=== PATIENT | female | born 1980 | race Caucasian/White ===

== ENCOUNTER 2022-04-30 20:25 | Inpatient (IN) | payer OTHER ==
[~2022-04-30 20:25] MED LIST: Iopamidol-370 76% 500 ML 1 ML ONE
[2022-04-30 20:45] LABS: #Eosinphils 0.1 thou/uL (0.0-0.7); #Lymphocytes 1.6 thou/uL (1.20-3.40); #Monocytes 0.8 thou/uL (0.11-0.59); #Neutrophils 6.1 thou/uL (1.40-6.50); %Basophils 0.3 % (0.0-1.0); %Eosinophils 1.7 % (0.0-10.0); %Lymphocytes 18.6 % (21.0-51.0); %Monocytes 9.1 % (0.0-10.0); %Neutrophils 70.2 % (42.0-75.0); Hemoglobin 13.2 g/dL (12.0-16.0); Mean Corpuscular HGB CONC 31.4 g/dL (32.0-36.0); Mean Corpuscular Hemoglobin 27.9 pg (27.0-31.0); Mean Corpuscular Volume 88.8 fl (78.0-98.0); Mean Platelet Volume 10.7 fL (7.4-10.4); Platelet Count 169 10x3/uL (130-400); RBC Distribution Width 14.8 % (11.5-14.5); Red Blood Cell (RBC) Count 4.74 mill/uL (4.20-5.40); White Blood Cell (WBC) Count 8.7 10x3/uL (4.8-10.8)
[2022-04-30 21:03] LABS: ALT (SGPT) 15 U/L (8-55); AST (SGOT) 15 U/L (5-34); Albumin 3.9 g/dL (3.5-5.0); Alkaline Phosphatase 76 U/L (40-110); Anion Gap 13 mmol/L (10-20); BUN (Urea Nitrogen) 9 mg/dL (7.0-18.7); Bilirubin, Total 0.4 mg/dL (0.2-1.2); CK (CPK) 50 U/L (29-168); Calc. Creatinine Clearance 0 mL/min (70-130); Calcium 8.3 mg/dL (7.8-10.44); Carbon Dioxide 16 mmol/L (22-29); Chloride 112 mmol/L (98-107); Estimated GFR 99; Globulin 2.6 g/dL (2.4-3.5); Glucose 87 mg/dL (70-105); Potassium 3.8 mmol/L (3.5-5.1); Protein, Total 6.5 g/dL (6.0-8.3); Sodium 137 mmol/L (136-145)
[2022-04-30] MEDS ORDERED: Aspirin Chewable 81 MG TAB ONE (21:13)
[2022-04-30 21:54] LABS: PTT 28.8 sec (22.9-36.1); Prothrombin Time 13.2 sec (12.0-14.7)
[2022-04-30 22:44] LABS: BHCG - Serum Negative (NEGATIVE); Pregs Control Background? CLEAR/WHITE (CLR/WHITE); Pregs Control Bar Appear? YES (CONTROL BAR)
[2022-04-30] MEDS ORDERED: Acetaminophen 325 MG TAB PO PRN (22:54)
[2022-04-30] MEDS ORDERED: hydrALAZINE 20 MG/ML VIAL SLOW IVP PRN (22:54)
[2022-04-30] MEDS ORDERED: Ondansetron ODT 4 MG TAB PO PRN (22:54)
[2022-04-30] MEDS ORDERED: Ondansetron PF 4 MG/2 ML Vial IVP PRN (22:54)
[2022-04-30] MEDS ORDERED: Mag-Al 1200 mg/1200 mg/30 ML UDCUP PO SCH (23:00)
[2022-04-30 23:40] LABS: Magnesium 1.9 mg/dL (1.6-2.6)
[2022-05-01 01:26] LABS: Acetaminophen Less than 10.0 mcg/mL (10.0-30.0); Alcohol Less than 10 mg/dL (Less than 10); Salicylate Less than 8.0 mg/dL (15.0-30.0)
[2022-05-01 01:29] LABS: Troponin I Less than 0.010 ng/mL (< 0.028)
[2022-05-01 01:34] VITALS: BMI 28.5
[2022-05-01 03:50] LABS: Anion Gap 15 mmol/L (10-20); BUN (Urea Nitrogen) 7 mg/dL (7.0-18.7); Calc. Creatinine Clearance 134 mL/min (70-130); Calcium 8.5 mg/dL (7.8-10.44); Carbon Dioxide 15 mmol/L (22-29); Cardiac Risk 3.8 (Less than 4.5); Chloride 110 mmol/L (98-107); Cholesterol 169 mg/dl (< 200 Desired); Estimated GFR 114; Glucose 88 mg/dL (70-105); HDL Cholesterol 45 mg/dL (>60 Neg Risk); LDL Cholesterol, Calculated 114 mg/dL; Potassium 3.8 mmol/L (3.5-5.1); Sodium 136 mmol/L (136-145); Triglycerides 50 mg/dL (Less than 150)
[2022-05-01 05:47] LABS: Troponin I Less than 0.010 ng/mL (< 0.028)
[2022-05-01] MEDS: Famotidine 20 MG TAB PO SCH ×2 (06:30→19:13)
[2022-05-01] MEDS ORDERED: Famotidine/PF 20 mg/2ml Vial SLOW IVP SCH (09:00)
[2022-05-01] MEDS: Sodium Bicarbonate Tab 325 MG TAB PO SCH ×3 (09:50→21:26)
[2022-05-01] MEDS: Aspirin 81 mg Enteric Coated Tablet PO SCH (09:50)
[2022-05-01 20:11] LABS: Prothrombin Time 13.7 sec (12.0-14.7)
[2022-05-01 20:12] LABS: PTT 29.4 sec (22.9-36.1)
[2022-05-01] MEDS ORDERED: Atorvastatin Calcium 40 MG TAB PO SCH (21:00)
[2022-05-02 05:15] LABS: #Eosinphils 0.3 thou/uL (0.0-0.7); #Lymphocytes 1.7 thou/uL (1.20-3.40); #Monocytes 0.6 thou/uL (0.11-0.59); #Neutrophils 3.5 thou/uL (1.40-6.50); %Basophils 0.6 % (0.0-1.0); %Eosinophils 4.5 % (0.0-10.0); %Lymphocytes 27.9 % (21.0-51.0); Hemoglobin 12.4 g/dL (12.0-16.0); Mean Corpuscular HGB CONC 32.3 g/dL (32.0-36.0); Mean Corpuscular Hemoglobin 28.2 pg (27.0-31.0); Mean Corpuscular Volume 87.3 fl (78.0-98.0); Mean Platelet Volume 10.4 fL (7.4-10.4); Platelet Count 162 10x3/uL (130-400); RBC Distribution Width 14.5 % (11.5-14.5); Red Blood Cell (RBC) Count 4.39 mill/uL (4.20-5.40); White Blood Cell (WBC) Count 6.1 10x3/uL (4.8-10.8)
[2022-05-02 05:41] LABS: Anion Gap 10 mmol/L (10-20); BUN (Urea Nitrogen) 6 mg/dL (7.0-18.7); Calc. Creatinine Clearance 132 mL/min (70-130); Calcium 8.4 mg/dL (7.8-10.44); Carbon Dioxide 21 mmol/L (22-29); Chloride 109 mmol/L (98-107); Estimated GFR 113; Glucose 94 mg/dL (70-105); Potassium 3.8 mmol/L (3.5-5.1); Sodium 136 mmol/L (136-145)
[2022-05-02] MEDS: Famotidine 20 MG TAB PO SCH (06:36)
[2022-05-02] MEDS: Sodium Bicarbonate Tab 325 MG TAB PO SCH ×2 (08:47→16:05)
[2022-05-02] MEDS: Aspirin 81 mg Enteric Coated Tablet PO SCH (08:47)
[2022-05-02 15:53] VITALS: BP 130/62; TEMP 98.7
[2022-05-05 13:06] LABS: Cardiolipin IgA Ab 6.8 APL-U/mL (<14 Negative); Cardiolipin IgG Ab 2.7 GPL-U/mL (<10 Negative); Cardiolipin IgM Ab 1.7 MPL-U/mL (<10 Negative); EliA APS New Method **** NEW METHOD ****; beta-2-Glycoprotein I IgA Ab 4.3 U/mL (<7 Negative); beta-2-Glycoprotein I IgG Ab 2.2 U/mL (<7 Negative); beta-2-Glycoprotein I IgM Abs Less than 2.9 U/mL (<7 Negative)
[2022-05-06 15:05] LABS: DRVVT Confirm 33.3; HEX PHOS LA Tube 1 44.1 SEC; HEX PHOS LA Tube 2 41.8 SEC; Hexagonal Phospholipid Neut 2.4 SEC (0-8.0)
== END 2022-05-02 16:50 | disposition home or self-care (01) | DRG 69 ==
LOC: ERS 20:25 → 2SW 22:48 → OBSVTOIN 05-01 16:14
PROVIDERS: ADMIT Hospitalist; ATTEND Hospitalist
DX: G45.9 Transient cerebral ischemic attack, unspecified (principal); E87.20 Acidosis, unspecified; Z20.822 Contact with and (suspected) exposure to COVID-19; I10 Essential (primary) hypertension; K21.9 Gastro-esophageal reflux disease without esophagitis; Z86.73 Personal history of transient ischemic attack (TIA), and cerebral infarction without residual deficits; Z88.0 Allergy status to penicillin; Z79.82 Long term (current) use of aspirin; Z90.49 Acquired absence of other specified parts of digestive tract; Z98.84 Bariatric surgery status; Z90.89 Acquired absence of other organs; Z82.49 Family history of ischemic heart disease and other diseases of the circulatory system
CPT/HCPCS: 36415; 36416; 70450; 70496; 70498; 70551; 80048; 80061; 80307; 81241; 82550; 82607; 83605; 83735; 84443; 84484; 84703; 85025; 85240; 85250; 85305; 85306; 85307; 85598; 85610; 85613; 85730; 86146; 86147; 93306; 99285; G0378; Q9967; U0003; U0005

== ENCOUNTER 2023-12-08 09:19 | Outpatient (CLI) | payer OTHER ==
[2023-12-08 10:01] LABS: Hematocrit 37.7 % (34.9-44.5); Hemoglobin 12.7 g/dL (12.0-15.5); Mean Corpuscular HGB CONC 33.7 g/dL (32.0-36.0); Mean Corpuscular Hemoglobin 30.2 pg (27.0-33.0); Mean Corpuscular Volume 89.5 fL (81.6-98.3); Mean Platelet Volume 11.6 fL (7.4-10.4); Platelet Count 205 10x3/uL (150-450); RBC Distribution Width 12.8 % (11.5-14.5); Red Blood Cell (RBC) Count 4.21 10x6/uL (3.90-5.03); White Blood Cell (WBC) Count 5.5 10x3/uL (3.5-10.5)
[2023-12-08 10:39] LABS: BHCG - Serum Negative (NEGATIVE); Pregs Control Background? CLEAR/WHITE (CLR/WHITE); Pregs Control Bar Appear? YES (CONTROL BAR)
== END 2023-12-08 09:20 | disposition home or self-care (01) ==
LOC: LABBT 09:19
PROVIDERS: ATTEND Surgery
DX: Z01.812 Encounter for preprocedural laboratory examination (principal); K43.9 Ventral hernia without obstruction or gangrene
CPT/HCPCS: 84703; 85027

== ENCOUNTER 2023-12-13 09:55 | Day surgery (SDC) | payer OTHER ==
[2023-12-08 09:40] VITALS: BMI 24.4
[2023-12-13] MEDS ORDERED: EPINEPHrine 1 MG/ML VIAL ONE (10:42)
[2023-12-13] MEDS ORDERED: Dexamethasone 4 mg/ml Vial ONE (10:53)
[2023-12-13] MEDS ORDERED: Rocuronium Bromide 10 MG/ML (10ML VIAL) ONE (10:53)
[2023-12-13] MEDS ORDERED: Ondansetron PF 4 MG/2 ML Vial ONE (10:53)
[2023-12-13] MEDS ORDERED: PROPOFOL 20 ML ONE (10:55)
[2023-12-13] MEDS ORDERED: Clindamycin/D5W 600 mg/50 ml Premix Bag ONE (11:48)
[2023-12-13] MEDS ORDERED: Midazolam HCl 2 mg/2 ml Vial ONE (11:52)
[2023-12-13] MEDS ORDERED: fentaNYL 50 mcg/mL 1 mL Vial ONE ×6 (12:00→14:22)
[2023-12-13] MEDS ORDERED: Sevoflurane 250 ML INH ANEST BOTTLE ONE (12:01)
[2023-12-13] MEDS ORDERED: ePHEDrine Sulfate 50 MG/10 ML VIAL ONE ×2 (12:31→13:41)
[2023-12-13] MEDS ORDERED: SUGAMMADEX SODIUM 200 MG/2 ML VIAL ONE (13:04)
[2023-12-13] MEDS ORDERED: HYDROcodone/Acetaminophen 5/325 mg Tablet ONE (15:41)
== END 2023-12-13 16:11 | disposition home or self-care (01) ==
LOC: SDC 09:55
PROVIDERS: ATTEND Surgery
PROC: 0WUF4JZ Supplement Abdominal Wall with Synthetic Substitute, Percutaneous Endoscopic Approach (ICD-10-PCS; principal; 2023-12-13)
DX: K43.6 Other and unspecified ventral hernia with obstruction, without gangrene (principal); Z88.0 Allergy status to penicillin
CPT/HCPCS: C1781; J0171; J1100; J2250; J2405; J2704; J3010; J3490